=== PATIENT | female | born 1955 | race Caucasian/White ===

== ENCOUNTER 2020-10-01 11:53 | Outpatient (REF) | payer MEDICARE, MEDICAID, SELFPAY ==
--- NOTE | 2020-10-01 | MM_ITS ---
EXAMINATION: MM SCREENING DIGITAL BREAST TOMOSYNTHESIS, BILATERAL CLINICAL INFORMATION: Screening. Asymptomatic. The lifetime risk of breast cancer based on the Tyrer-Cuzick Model is 4.8%. COMPARISON: Mammography: December 11, 2018 and studies dating back to March 19, 2014 TECHNIQUE: Digital breast tomosynthesis is performed in both the craniocaudal and mediolateral oblique views along with computer-aided detection (CAD). Synthesized 2D images are generated from the tomosynthesis. FINDINGS: The breasts are almost entirely fatty (ACR BI-RADS breast composition Category a). There are no significant masses, abnormal calcifications, or other abnormalities. MM/MM tomosynthesis screening BI IMPRESSION: There are no significant changes from prior study. ASSESSMENT: BI-RADS 1: Negative RECOMMENDATION: Routine annual mammography screening. This patient's information was entered into a reminder system with a target due date for their next mammogram.
== END 2020-10-01 11:54 | disposition home or self-care (01) ==
LOC: HO.MAMMO 11:53
PROVIDERS: Visit Provider Internal Medicine
DX: Z12.31 Encounter for screening mammogram for malignant neoplasm of breast (principal)
CPT/HCPCS: 77063; 77067

== ENCOUNTER → 2020-11-01 12:32 | Outpatient (BNVA) | payer MEDICARE, MEDICAID, SELFPAY | PROVIDERS: PCP Internal Medicine; Referring Provider Internal Medicine; Visit Provider Internal Medicine Cardiovascular Disease | DX: R07.9 Chest pain, unspecified (principal); E78.5 Hyperlipidemia, unspecified | CPT/HCPCS: 93005; 99212 ==

== ENCOUNTER → 2020-11-09 10:42 | Outpatient (REF) | payer MEDICARE, MEDICAID, SELFPAY ==
--- NOTE | 2020-11-09 10:44 | CA_ITS ---
Acquisition Time: 2020-11-09 11:15:12 Total Exercise Time: 00:07:05 Test Indications: cp Medications: see chart Protocol: GUDELIA Max HR: 173 BPM 110% of Pred: 157 BPM Max BP: 146/080 mmHG Max Work Load: 8.6 METS Exercise stress ECHO using Gudelia protocol, total of 7 min 5 sec. METS 8.6 with MAPHR up to 106%. Pt tolerated well, denies any anginal sx, mild SOB in peak exercise, that resolved in recovery. EKG with no arrhythmias, Mild upsloping ST depressions seen in leads V3-V6. ECHO images taken at rest and immediately after peak exercise. Defenity contrast used. Normotensive response to exercise. Test reviewed with Dr. Jimenez Referred By: Drew Natarajan Overread By: Louise Victoria
== END ==
LOC: HO.CARD 10:42
PROVIDERS: Visit Provider Internal Medicine Cardiovascular Disease
DX: R07.9 Chest pain, unspecified (principal)
CPT/HCPCS: 93350; Q9957

== ENCOUNTER → 2020-11-29 13:18 | Outpatient (BNVA) | payer MEDICARE, MEDICAID, SELFPAY | PROVIDERS: PCP Internal Medicine; Visit Provider Internal Medicine Cardiovascular Disease | DX: E78.5 Hyperlipidemia, unspecified (principal); R07.9 Chest pain, unspecified | CPT/HCPCS: Q3014 ==

== ENCOUNTER → 2020-12-06 07:54 | Outpatient (REF) | payer MEDICARE, MEDICAID, SELFPAY ==
--- NOTE | 2020-12-06 08:00 | CA_ITS ---
Acquisition Time: 2020-12-06 09:01:14 Total Exercise Time: 00:07:20 Test Indications: Abnormal Treadmill Test Medications: ASA ROSUVASTATIN TOPAMAX ZETIA DICLOFENAC Protocol: GUDELIA Max HR: 142 BPM 90% of Pred: 157 BPM Max BP: 144/066 mmHG Max Work Load: 9.0 METS Exercise stress nuclear using Gudelia protocol, total of 7 mi n 20 sec. METS 9.0 and TAPHR up to 90- %. Pt tolerated well. Denies any anginal sx. EKG with no arrhythmias. Mild, scooped ST depressions seen inferiorly and laterally. Nuclear images to follow. Normotensive response to exercise. Test reviewed with Dr. Natarajan. Referred By: Drew Natarajan Overread By: Louise Victoria
--- NOTE | 2020-12-06 08:07 | NM_ITS ---
EXERCISE MYOCARDIAL PERFUSION STUDY INDICATION: Chest pain, assess for coronary disease and ischemia TECHNIQUE: The patient was brought in for an exercise perfusion study on 12/06/2020. Patient performed exercise as per Brian protocol and was injected 25 mCi of sestamibi once target heart rate was achieved. Images were obtained using the SPECT gamma camera interlaced with the gating device. Images were obtained in supine position. Resting perfusion study was performed on 12/07/2020. Patient was administered 25 mCi of sestamibi intravenously at rest. Images were then obtained in supine position. Total DLP 79mGy-cm. Images were processed with the software and compared side to side in short axis, horizontal long axis and vertical long axis views. FINDINGS: Raw images were reviewed. The stress perfusion study showed diminished tracer uptake along the distal anterolateral wall. With CT attenuation correction, there is improvement which is indicative of soft tissue attenuation artifact. The gated study shows normal LV systolic function with calculated LVEF of 72%. LV cavity is normal in size. The gated study shows normal wall thickening and contraction of segments. Resting study shows diminished tracer uptake along the distal part of anterolateral wall that improves with CT attenuation correction. Gating at rest reveals normal wall motion with ejection fraction at 70%. The findings are consistent with distal anterolateral perfusion defect with reversible and fixed components but improving with CT attenuation correction. NM/DC cardiolite stress test IMPRESSION: 1. Myocardial perfusion imaging study shows distal anterolateral perfusion defect which has some reversible and fixed components. Improvement with CT attenuation correction this is suggestive of soft tissue attenuation. However EKG component is also abnormal and hence clinically correlate for ischemia. 2. Gated LVEF is 72% with stress; 70% during rest.. 3. Transient ischemic dilatation not present. EKG component of the test reported separately.
== END ==
LOC: HO.CARD 07:54
PROVIDERS: Visit Provider Internal Medicine Cardiovascular Disease
DX: R07.9 Chest pain, unspecified (principal)
CPT/HCPCS: 78452; 93017; A9500

== ENCOUNTER → 2020-12-16 09:54 | Outpatient (BNVA) | payer MEDICARE, MEDICAID, SELFPAY | PROVIDERS: PCP Internal Medicine; Visit Provider Internal Medicine Cardiovascular Disease | DX: R07.9 Chest pain, unspecified (principal); I77.9 Disorder of arteries and arterioles, unspecified; E78.5 Hyperlipidemia, unspecified | CPT/HCPCS: 99212 ==

== ENCOUNTER → 2021-03-10 10:21 | Outpatient (BNVA) | payer MEDICARE, MEDICAID, SELFPAY | PROVIDERS: PCP Internal Medicine; Visit Provider Nurse Practitioner Family | DX: R07.9 Chest pain, unspecified (principal); I77.9 Disorder of arteries and arterioles, unspecified; E78.5 Hyperlipidemia, unspecified; Z79.899 Other long term (current) drug therapy | CPT/HCPCS: 99212 ==

== ENCOUNTER → 2021-07-07 13:20 | Outpatient (BNVA) | payer MEDICARE, MEDICAID, SELFPAY | PROVIDERS: PCP Internal Medicine; Visit Provider Internal Medicine Cardiovascular Disease | DX: R07.89 Other chest pain (principal) | CPT/HCPCS: 93005; 99212 ==

== ENCOUNTER 2021-07-25 09:53 | Outpatient (REF) | payer MEDICARE, MEDICAID, SELFPAY ==
[2021-07-25 10:59] LABS: Hematocrit 42.7 % (37-47); Hemoglobin 13.9 g/dl (12.0-16.0); Mean Corpuscular HGB Conc 32.6 g/dl (31.0-35.0); Mean Corpuscular Hemoglobin 30.3 pg (27.0-33.0); Mean Platelet Volume 9.6 fL (9.4-12.3); Platelet Count 384 X10*3/uL (160-400); Red Blood Count 4.59 X10*6/uL (4.20-5.50); Red Cell Distribution Width 13.9 % (11.0-16.0); White Blood Count 6.5 X10*3/uL (4.8-10.8)
[2021-07-25 11:11] LABS: Prothrombin Time 11.7 SEC (9.9-13.0)
[2021-07-25 11:28] LABS: Anion Gap 13 (12-20); Blood Urea Nitrogen 6 mg/dL (9-16); Calcium 9.7 mg/dL (8.4-10.2); Carbon Dioxide 29 mmol/L (22-29); Chloride 105 mmol/L (96-108); Estimated Glomerular Filt Rate > 60; Glucose Random 81 mg/dL (60-115); Potassium 4.6 mmol/L (3.3-5.1); Sodium 142 mmol/L (135-145)
== END 2021-07-25 09:54 | disposition home or self-care (01) ==
LOC: HO.LAB 09:53
PROVIDERS: PCP Internal Medicine; Visit Provider Internal Medicine Cardiovascular Disease
DX: R07.9 Chest pain, unspecified (principal)
CPT/HCPCS: 36415; 80048; 85027; 85610

== ENCOUNTER 2021-08-04 10:08 | Outpatient (REF) | payer MEDICARE, MEDICAID, SELFPAY ==
[2021-08-04 10:50] LABS: COVID-19 Test Negative (Negative)
== END 2021-08-04 10:09 | disposition home or self-care (01) ==
LOC: HO.LAB 10:08
PROVIDERS: PCP Internal Medicine; Visit Provider Internal Medicine
DX: Z20.822 Contact with and (suspected) exposure to COVID-19 (principal)
CPT/HCPCS: 36415; 87635; C9803

== ENCOUNTER → 2021-08-23 12:39 | Outpatient (BNVA) | payer MEDICARE, MEDICAID, SELFPAY | PROVIDERS: PCP Internal Medicine; Referring Provider Internal Medicine; Visit Provider Internal Medicine Cardiovascular Disease | DX: I25.10 Atherosclerotic heart disease of native coronary artery without angina pectoris (principal) | CPT/HCPCS: 99212 ==

== ENCOUNTER 2021-10-05 11:48 | Outpatient (REF) | payer MEDICARE, MEDICAID, SELFPAY ==
--- NOTE | ~2021-10-05 | MM_ITS ---
EXAMINATION: MM SCREENING DIGITAL BREAST TOMOSYNTHESIS, BILATERAL CLINICAL INFORMATION: Screening. Asymptomatic. The lifetime risk of breast cancer based on the Tyrer-Cuzick Model is 5%. COMPARISON: Mammography: 10/01/2020, 12/11/2018, 04/04/2017 TECHNIQUE: Digital breast tomosynthesis is performed in both the craniocaudal and mediolateral oblique views along with computer-aided detection (CAD). Synthesized 2D images are generated from the tomosynthesis. FINDINGS: There are scattered areas of fibroglandular density (ACR BI-RADS breast composition Category b). There are no significant masses, abnormal calcifications, or other abnormalities. Background stromal and fibroglandular densities are stable. No significant changes. MM/MM tomosynthesis screening BI IMPRESSION: No mammographic evidence of malignancy. ASSESSMENT: BI-RADS 1: Negative RECOMMENDATION: Routine annual mammography screening. This patient's information was entered into a reminder system with a target due date for their next mammogram.
== END 2021-10-05 11:49 | disposition home or self-care (01) ==
LOC: HO.MAMMO 11:48
PROVIDERS: Visit Provider Internal Medicine
DX: Z12.31 Encounter for screening mammogram for malignant neoplasm of breast (principal)
CPT/HCPCS: 77063; 77067

== ENCOUNTER → 2022-08-28 12:49 | Outpatient (BNVA) | payer MEDICARE, MEDICAID, SELFPAY | PROVIDERS: PCP Internal Medicine; Referring Provider Internal Medicine; Visit Provider Internal Medicine Cardiovascular Disease | DX: I25.10 Atherosclerotic heart disease of native coronary artery without angina pectoris (principal) | CPT/HCPCS: 93005; 99212 ==

== ENCOUNTER 2023-12-01 09:33 | Outpatient (REF) | payer MEDICARE, MEDICAID, SELFPAY | END 2023-12-01 09:34 | disposition home or self-care (01) | LOC: HO.MAMMO 09:33 | PROVIDERS: PCP Internal Medicine; Visit Provider Internal Medicine | DX: Z12.31 Encounter for screening mammogram for malignant neoplasm of breast (principal) | CPT/HCPCS: 77063; 77067 ==

== ENCOUNTER → 2023-12-01 09:45 | Outpatient (BNV) | payer OTHER, MEDICAID, SELFPAY | PROVIDERS: PCP Internal Medicine; Visit Provider Radiology Diagnostic Radiology | DX: Z12.31 Encounter for screening mammogram for malignant neoplasm of breast (principal) | CPT/HCPCS: 77063; 77067 ==

== ENCOUNTER 2024-01-30 10:43 | Outpatient (AMB) | payer MEDICARE, MEDICAID, SELFPAY ==
--- NOTE | 2024-01-30 10:47 | A.OFFVIS_ITS ---
Intake Vital Signs 01/30/24 10:48 Height 5 ft 2 in Weight 143 lb 4.807 oz BMI 26.2 BP 120/76 Blood Pressure Location Lt brachial Position Sitting Pulse 69 Intake Visit Reasons: 1 YR F/UP Intake Note: 1 year follow up with EKG Allergies varenicline Allergy (Unknown, Verified 03/10/21 10:44) rash Medication List - Last Reconciled 01/30/24 by Drew Natarajan MD aspirin (Adult Low Dose Aspirin) 81 mg PO DAILY blood pressure monitor (Blood Pressure Kit) As directed cyclobenzaprine 10 mg PO BID PRN diclofenac sodium 75 mg PO BID duloxetine 60 mg PO DAILY duloxetine (Cymbalta) 30 mg PO BID ezetimibe (Zetia) 10 mg PO DAILY metoprolol succinate ER 25 mg PO DAILY naproxen 5 mg PO BID PRN nitroglycerin 0.3 mg sublingual Q5M omeprazole 20 mg PO DAILY rosuvastatin 40 mg PO DAILY topiramate (Topamax) 50 mg PO BID HPI HPI Comments History of Present Illness Details Dominic comes for follow-up after a longer than a year. She says that she never got the appointment. She denies any new symptoms. She says intermittently she would get sudden not thing in her chest which should happen including at rest and last for few seconds. Symptoms would quickly resolved with associated with shortness of breath. She also gets exertional shortness of breath but unfortunately she continues to smoke. As you aware she has diffuse nonobstructive coronary artery disease. She was recently started on statins, high-intensity rosuvastatin as well as ezetimibe. Repeat lipids are pending. A blood pressure is generally well control and she takes all her medications regularly. COUNT INCLUDES THE [facility] Medical History CAD (coronary artery disease) CVA (cerebral vascular accident) Bilateral carotid artery disease Hyperlipidemia Surgical History Hx of arthroscopic knee surgery Family History Father CVD (cardiovascular disease) Mother Esophagus cancer Review of Systems Const Denies weakness ENT Denies dizziness Card Denies chest pain, Denies chest pain with activity, Denies syncope, Denies rapid heart rate, Denies pedal edema, Denies edema, Denies leg edema, Denies lightheadedness, Denies palpitations, Denies dyspnea, Denies dyspnea on exertion and Denies orthopnea Resp Denies cough, Denies dyspnea and Denies dyspnea on exertion GI Denies hematochezia and Denies change in stool character Musc Denies abnormal gait, Denies muscle cramps, Denies muscle weakness, Denies numbness, Denies radiating pain into limb and Denies tingling Neuro Denies abnormal gait, Denies dizziness, Denies syncope, Denies numbness, Denies tingling and Denies weakness Endo Denies palpitations Physical Exam Vital Signs: Last Vital Signs Pulse 69 01/30/24 10:48 BP 120/76 01/30/24 10:48 BMI result Body Mass Index 26.2 Const General: cooperative, comfortable, alert and awake Nutritional Appearance: average body habitus Orientation/consciousness: patient oriented x3 Limitations: no limitations Neck Neck: Yes trachea midline, Yes supple and Yes no JVD Chest Chest palpation & inspection: normal inspection of the chest Resp Effort & Inspection: normal respiratory effort Auscultation: clear to auscultation bilaterally Cardio Jugular venous distension: no JVD Palpation: normal PMI Rate: regular rate Rhythm: regular rhythm Heart sounds: S1 normal heart sound present and S2 normal heart sound present Skin General skin exam: no rashes or lesions noted Neuro General: patient oriented x3 and no focal motor deficits Extrem General: Yes no clubbing, cyanosis or edema Psych Appearance: grossly normal Office Procedures EKG Details: EKG shows normal sinus rhythm with normal EKG [id number], Complete Assessment & Plan Assessment & Plan (1) CAD (coronary artery disease): Comment: Nonobstructive by cardiac catheterization, 08/09/2021 Code(s): I25.10 - Atherosclerotic heart disease of [place] coronary artery without angina pectoris Plan: Diffuse CAD, nonobstructive by cardiac catheterization. Intermittent episode of chest discomfort which appear to be not cardiac in nature. She does have exertional shortness of breath which could be related to COPD/LV systolic dysfunction. She also has diffuse bilateral carotid disease. Will suggest carotid duplex to further assess for progressive carotid disease. Continue aggressive risk factor modification with starts with complete smoking cessation. This was discussed with her. She is currently wanting to defer smoking cessation. She was recently started on high-intensity statin therapy and ezetimibe which she is tolerating well. Advise follow-up lipid panel as prescr ibed. Goal LDL closer to 60 mg/dL. Continue low-dose aspirin therapy. Blood pressure is currently well optimized. Follow up in the clinic in 1 year's time, sooner p.r.n.. Thank you for allowing me to partake in the care Coding Level of Care Code Est Pt Level 4 (80025) Diagnoses CAD (coronary artery disease) I25.10 CPT Codes EKG - CPT: 79237-[id number], Complete ([id number])
[2024-01-30 10:48] VITALS: BP 120/76; PULSE 69; BMI 26.2
== END 2024-01-30 11:25 | disposition home or self-care (01) ==
PROVIDERS: PCP Internal Medicine; Visit Provider Internal Medicine Cardiovascular Disease
DX: I25.10 Atherosclerotic heart disease of native coronary artery without angina pectoris (principal)
CPT/HCPCS: 93010; 99214

== ENCOUNTER → 2024-01-30 10:43 | Outpatient (BNVA) | payer MEDICARE, MEDICAID, SELFPAY | PROVIDERS: PCP Internal Medicine; Visit Provider Internal Medicine Cardiovascular Disease | DX: I25.10 Atherosclerotic heart disease of native coronary artery without angina pectoris (principal) | CPT/HCPCS: 93005; 99212 ==

== ENCOUNTER 2024-02-06 14:34 | Outpatient (REF) | payer MEDICARE, MEDICAID, SELFPAY ==
--- NOTE | ~2024-02-06 | US_ITS ---
EXAMINATION: US EXTRACRANIAL CAROTID DUPLEX, BILATERAL CLINICAL INFORMATION: CVA COMPARISON: Carotid ultrasound 2019 and 2016 TECHNIQUE: Real-time ultrasound and Doppler techniques (integrating B-mode 2-D vascular images, Doppler spectral analysis and color-flow Doppler imaging) were utilized to interrogate the extracranial carotid arteries, the vertebral arteries and proximal subclavian arteries bilaterally. The degree of stenosis is determined by criteria similar to NASCET. FINDINGS: Right Side: 1. There is mild atherosclerotic plaque seen in the bifurcation/proximal ICA region. 2. The common carotid artery PSV proximally is 103 cm/s and distally 57 cm/s. 3. The proximal internal carotid artery velocities are 117 cm/s systolic and 41 cm/s diastolic. 4. The proximal external carotid artery PSV is 142 cm/s. 5. The vertebral artery shows antegrade flow. 6. The subclavian artery waveforms are normal. Left Side: 1. There is mild atherosclerotic plaque seen in the bifurcation/proximal ICA region. 2. The common carotid artery PSV proximally is 118 cm/s and distally 77 cm/s. 3. The proximal internal carotid artery velocities are 103 cm/s systolic and 32 cm/s diastolic. 4. The proximal external carotid artery PSV is 92 cm/s. 5. The vertebral artery shows antegrade flow. 6. The subclavian artery waveforms are abnormal with peak systolic velocity of 2 24 cm/s. US/US carotid duplex BI IMPRESSION: 1. RIGHT: Minimal, non-hemodynamically significant stenosis of the proximal right internal carotid artery corresponding to a 0-49% stenosis by velocity criteria. 2. LEFT: Minimal, non-hemodynamically significant stenosis of the proximal left internal carotid artery corresponding to a 0-49% stenosis by velocity criteria. 3. Redemonstration of elevated peak systolic velocities within the left distal ICA, which may be related to tortuosity or atherosclerotic disease. As recommended on prior ultrasound in 2016, recommend further evaluation with CTA or MRA. 4. Elevated peak systolic velocities within the left subclavian artery, consistent with more hemodynamically significant stenosis.
== END 2024-02-06 14:35 | disposition home or self-care (01) ==
LOC: HO.US 14:34
PROVIDERS: PCP Internal Medicine; Visit Provider Internal Medicine Cardiovascular Disease
DX: I77.9 Disorder of arteries and arterioles, unspecified (principal); I65.23 Occlusion and stenosis of bilateral carotid arteries
CPT/HCPCS: 93880

== ENCOUNTER → 2024-02-19 13:42 | Outpatient (REF) | payer MEDICARE, MEDICAID, SELFPAY ==
--- NOTE | 2024-02-19 13:44 | CA_ITS ---
Transthoracic Echocardiogram Patient (Last, First, Middle): Sita Swanson, Gender: Female Date of : 1955 Age: 68 Procedure Date: 02/19/2024 Procedure Type: Transthoracic Echocardiogram Location: OP Height: 157.48 cm Weight: 64.41 kg BSA: 1.65 m2 Heart Rate: bpm BP: 132 / 76 mmHg Spiral Winding Machine Helper: MARIN Referring MD: Drew Natarajan MD Symptoms: R06.02 - Shortness of breath Study Quality: Adequate ECG Rhythm: Sinus Conclusions: - The left ventricular systolic function is normal. The calculated ejection fraction is 64% by biplane method. - No obvious valvular pathology seen on this study. Findings Left Ventricle Normal left ventricular cavity size. There is normal left ventricular wall thickness. The left ventricular systolic function is normal. The calculated ejection fraction is 64% by biplane method. There is no evidence of regional wall motion abnormalities. Diastolic function is normal for age. LV peak GLS -16.2%, suspect some underestimation. Right Ventricle Normal right ventricular cavity size and systolic function. Atria Both atria are normal in size. Aortic Valve There is a normal trileaflet aortic valve. There is no aortic valve stenosis. There is no aortic valve regurgitation. Mitral Valve The mitral valve appears normal. There is trace mitral valve regurgitation. There is no mitral valve stenosis. Pulmonic Valve The pulmonic valve is likely normal. Tricuspid Valve There is mild tricuspid valve regurgitation. There is no evidence of pulmonary hypertension. Great Vessels The asc aorta is normal in size. Venous The inferior vena cava is mildly dilated and collapses greater than 50% with inspiration. Pericardium/Pleural There is no evidence of pericardial effusion. Prior Study Comparison No significant change compared to prior study dated: 11/09/2020. Recommendations, Care & Conclusions No obvious valvular pathology seen on this study. Measurements 2D Linear Measurements IVSd: 1.01 0.6-0.9/0.6-1.0 cm LVIDd: 4.92 3.9-5.3/4.2-5.9 cm LVIDd Index: 2.98 2.4-3.2/2.2-3.1 cm/m2 LVIDs: 3.18 2.0-3.6 cm LVPWd: 0.79 0.7-1.1 cm LA Diam: 3.80 2.7-3.8/3.0-4.0 cm LAIDs Index: 2.30 1.5-2.3 cm/m2 LV Mass: 191.32 67-162/88-224 g LV Mass Index: 115.95 43-95/49-115 g/m2 LVOT Diam: 2.10 3.0+(-)1.3 cm 2D Systolic Function EF 4C: 63.40 >55% EF 2C: 65.60 >55% EF BiP: 63.50 >55% Mitral Valve MV Pk E: 0.68 MV PK A: 0.49 MV Decel Time: 250.00 E/A: 1.40 E'Lateral: 10.90 E'Medial: 8.81 E/E' Med: 7.70 E/E' Lat: 6.20 PHT: 73.00 MVA PHT: 3.01 Decel [place]: 2.70 Aortic Valve AoV Pk Kosta: 1.21 AoV Mn Kosta: 0.77 AoV VTI: 0.28 AoV Pk Grad: 6.00 Aov Mn Grad: 3.00 ROBEL Cont.VTI: 2.68 LVOT LVOT Pk [place]osta: 0.93 LVOT Mn [place]osta: 0.61 LVOT VTI: 0.21 LVOT Pk Grad: 3.00 LVOT Mn Grad: 2.00 LVOT Diam: 2.10 LVOT Area: 3.46 Diastolic Function MV Pk E: 0.68 MV Pk A: 0.49 E/A: 1.40 E'Medial: 8.81 E/E' Med: 7.70 E' Laterial: 10.90 E/E' Lat: 6.20 Right Ventricle TAPSE (mm): 28.50 TVS' Kosta: 14.30 Tricuspid Valve TR Pk [place]: 2.18 TR Pk Grad: 19.00 RA Press: 8.00 RVSP: 27.00 Great Vessels Aorta Sinus of Valsalva: 2.98 2.0-3.[address] [place]: 2.37 1.7-3.4 cm Ao Asc: 3.30 2.1-3.4 cm Updated in Other Vendor System with Status of Final Jerry Jimenez MD electronically signed on 02/20/2024 11:44:30 AM with status of Final
== END ==
LOC: HO.CARD 13:42
PROVIDERS: PCP Internal Medicine; Visit Provider Internal Medicine Cardiovascular Disease
DX: R06.02 Shortness of breath (principal)
CPT/HCPCS: 93306; 93356

== ENCOUNTER → 2024-02-19 13:44 | Outpatient (BNV) | payer MEDICARE, MEDICAID, SELFPAY | PROVIDERS: PCP Internal Medicine; Visit Provider Internal Medicine | DX: R06.02 Shortness of breath (principal) | CPT/HCPCS: 93306; 93356 ==

== ENCOUNTER 2024-05-07 09:03 | Outpatient (REF) | payer MEDICARE, MEDICAID, SELFPAY ==
[2024-05-07 11:56] LABS: Estimated Average Glucose 108 mg/dL; Hemoglobin A1c % 5.4 % (<6.0)
[2024-05-07 12:12] LABS: Alanine Aminotransferase 16 U/L (0-31); Albumin Level 3.9 g/dL (3.5-5.0); Alkaline Phosphatase 89 U/L (39-117); Anion Gap 10 (12-20); Aspartate Amino Transferase 17 U/L (5-31); Bilirubin Direct 0.2 mg/dL (0.0-0.5); Bilirubin Total 0.3 mg/dL (0.0-1.0); Blood Urea Nitrogen 13 mg/dL (9-16); Calcium 9.5 mg/dL (8.4-10.2); Carbon Dioxide 30 mmol/L (22-29); Chloride 105 mmol/L (96-108); Cholesterol 188 mg/dL (<200); Estimated Glomerular Filt Rate > 60; Glucose Random 97 mg/dL (60-115); HDL Cholesterol 45 mg/dL (>40); LDL Cholesterol Calculated 124 mg/dL (<100); Sodium 141 mmol/L (135-145); Total Protein 7.8 g/dL (6.5-8.0); Triglycerides 99 mg/dL (<150)
== END 2024-05-07 09:04 | disposition home or self-care (01) ==
LOC: HO.HHCL 09:03
PROVIDERS: Visit Provider Internal Medicine
DX: I25.10 Atherosclerotic heart disease of native coronary artery without angina pectoris (principal); I65.23 Occlusion and stenosis of bilateral carotid arteries; Z79.899 Other long term (current) drug therapy
CPT/HCPCS: 36415; 80048; 80061; 80076; 83036

== ENCOUNTER 2024-12-06 09:02 | Outpatient (REF) | payer MEDICARE, MEDICAID, SELFPAY | END 2024-12-06 09:03 | disposition home or self-care (01) | LOC: HO.MAMMO 09:02 | PROVIDERS: PCP Internal Medicine; Visit Provider Internal Medicine | DX: Z12.31 Encounter for screening mammogram for malignant neoplasm of breast (principal) | CPT/HCPCS: 77063; 77067 ==

== ENCOUNTER → 2024-12-06 09:45 | Outpatient (BNV) | payer MEDICARE, MEDICAID, SELFPAY | PROVIDERS: PCP Internal Medicine; Visit Provider Internal Medicine | DX: Z12.31 Encounter for screening mammogram for malignant neoplasm of breast (principal) | CPT/HCPCS: 77063; 77067 ==

== ENCOUNTER 2025-01-29 13:07 | Outpatient (AMB) | payer MEDICAID, SELFPAY ==
--- NOTE | 2025-01-29 13:23 | A.OFFVIS_ITS ---
Vital Signs 01/29/25 13:24 Height 5 ft 2 in Weight 143 lb 4.807 oz BMI 26.2 BP 120/80 Blood Pressure Location Lt brachial Position Sitting Pulse 86 Intake Visit Reasons: 1 yr f/up Intake Note: 1 year follow-up c/o some chest pain and sob patient hasn't taken her metoprolol 4-5 months Branch Operations Coordinator Required: No Allergies varenicline Allergy (Unknown, Verified 03/10/21 10:44) rash Medication List - Last Reconciled 01/29/25 by Drew Natarajan MD aspirin (Adult Low Dose Aspirin) 81 mg PO DAILY blood pressure monitor (Blood Pressure Kit) As directed cyclobenzaprine 10 mg PO BID PRN diclofenac sodium 75 mg PO BID duloxetine 60 mg PO DAILY duloxetine (Cymbalta) 30 mg PO BID ezetimibe (Zetia) 10 mg PO DAILY naproxen 5 mg PO BID PRN nitroglycerin 0.3 mg sublingual Q5M omeprazole 20 mg PO DAILY rosuvastatin 40 mg PO DAILY topiramate (Topamax) 50 mg PO BID HPI Comments Details: Sita comes for follow-up. Patient says she never about refill for metoprolol, never called our office. She has been noticing some chest discomfort since she has been off metoprolol. Overall also complains of occasional palpitations. Unfortunately she continues to smoke. She takes all her medications. Has not had any repeat lipid profile. Denies any heart failure symptoms. No prolonged palpitation irregular heartbeat. [facility] Medical History CAD (coronary artery disease) CVA (cerebral vascular accident) Bilateral carotid artery disease Hyperlipidemia Surgical History Hx of arthroscopic knee surgery Family History Father CVD (cardiovascular disease) Mother Esophagus cancer Review of Systems Const Denies chills, Denies fatigue, Denies fever(s), Denies frequent falls, Denies weakness, Denies weight gain and Denies weight loss ENT Denies dizziness Card Denies chest pain, Denies leg edema, Denies lightheadedness, Denies palpitations, Denies dyspnea, Denies dyspnea on exertion, Denies orthopnea and Denies other (loss of consciousness) Resp Denies cough, Denies dyspnea and Denies dyspnea on exertion GI Denies hematochezia and Denies change in stool character Musc Denies abnormal gait, Denies muscle weakness, Denies numbness, Denies radiating pain into limb and Denies tingling Neuro Denies abnormal gait, Denies dizziness, Denies frequent falls, Denies numbness, Denies tingling and Denies weakness Endo Denies fatigue and Denies palpitations Physical Exam Vital Signs: Last Vital Signs Pulse 86 01/29/25 13:24 BP 120/80 01/29/25 13:24 BMI result Body Mass Index 26.2 Const General: cooperative, comfortable, alert and awake Nutritional Appearance: average body habitus Orientation/consciousness: patient oriented x3 Limitations: no limitations Neck Neck: Yes trachea midline, Yes supple and Yes no JVD Chest Chest palpation & inspection: normal inspection of the chest Resp Effort & Inspection: normal respiratory effort Auscultation: clear to auscultation bilaterally Cardio Jugular venous distension: no JVD Palpation: normal PMI Rate: regular rate Rhythm: regular rhythm Heart sounds: S1 normal heart sound present and S2 normal heart sound present Skin General skin exam: no rashes or lesions noted Neuro General: patient oriented x3 and no focal motor deficits Extrem General: Yes no clubbing, cyanosis or edema Psych Appearance: grossly normal Office Procedures EKG Details: EKG shows normal sinus rhythm nonspecific ST changes [id number], Complete Assessment & Plan Assessment & Plan (1) CAD (coronary artery disease): Comment: Nonobstructive by cardiac catheterization, 08/09/2021 Code(s): I25.10 - Atherosclerotic heart disease of [place] coronary artery without angina pectoris Category: Medical Plan: Diffuse vascular disease although nonobstructive. Patient was multiple risk factors for the same. Current chest pain syndrome probably is related to ischemia with nonobstructive coronary artery disease. Advised to restart metoprolol therapy which has done well for her. Advised to monitor blood pressure at home maintain a log. Complete smoking cessation was advised. Continue high-intensity statin therapy with target goal LDL less than 70 mg/dL. Advised lipid panel in near future. Continue low-dose aspirin therapy for life. Carotid duplex last year showed nonobstructive disease, needs to be done every couple years. Advised to maintain activity level as tolerated. Will follow up in the clinic in 1 year's time, sooner p.r.n.. Thank you for allowing me to partake in her care Medications: New metoprolol succinate ER (Toprol XL) 25 mg PO DAILY 90 tabs 3RF Refilled nitroglycerin 0.3 mg sublingual Q5M 300 tabs 1RF for angina Coding Level of Care Code Est Pt Level 4 (89907) Complex EM visit Add On G2211 Diagnoses CAD (coronary artery disease) I25.10 CPT Codes EKG - CPT: 33150-[id number], Complete ([id number])
[2025-01-29 13:24] VITALS: BP 120/80; PULSE 86; BMI 26.2
--- OUTSIDE RECORDS SUMMARY | 2025-01-29 15:53 | XMS_ITS | Encounter Summary ---
Author Organization [employer] Address [address] [facility] 7t [place] [address] Care Team Providers Care Reclamation Worker Name Role Phone Helga Parker MD Primary Care Provide r Reason for Visit * Reason Comments Pre-visit Planning (Unable to reach for PVP screening, LVM) Encounter Details Date Type Department Care Team ([facility] st Contact Info) Description 01/28/2025 Patient Outreach [facility] [address] [place] [address] Helga Parker MD [address] [place] [address] Pre-visit Planning ((Unable to reach for PVP screening, LVM)) Social History Tobacco Use Types Packs/Day Years Used Date Smoking Tobacco: Every Day Cigarettes Passive Smoke Exposure: Current Smokeless Tobacco: Never Alcohol Use Standard Drinks/Week Comments Never 0 (1 standard drink = 0.6 oz pur e alcohol) Depression Answer Date Recorded Patient Health Questionnaire-9 Score 0 05/07/2024 Patient Health Questionnaire-9 Score 0 05/07/2024 Last PHQ-9: Questionnaire Data Not on file 0 05/07/2024 Housing Stability Answer Date Recorded What is your housing situation today? I have ronel kam 09/12/[address] you li ve. Do you have problems with any of the following? None of the above 09/12/2023 Food Insecurity Answer Date Recorded Within the past 12 months, y ou worried that your food would run out before you got money to buy more: Never True 09/12/2023 Within the past 12 months,th e food you bought just didn't last and you didn't have enough money to get more: Never True Transportation Answer Date Recorded In the past 12 months, has l ack of transportation kept you from medical appts, meetings, work or from getting things needed for daily living? No 09/12/2023 Utilities Answer Date Recorded In the past 12 months, has t he electric, gas, oil or water company threatened to shut off services in your home? No 09/12/2023 Depression Answer Date Recorded Patient Health Questionnaire-2 Score 0 05/07/2024 Comments Unknown Sex and Gender Information Value Date Recorded Sex Assigned at Female 09/25/2022 10:16 AM EDT Legal Sex Female 10:16 AM EDT Gender Identity Female 09/25/2022 10:16 AM EDT Sexual Orientation Straight 09/25/2022 10 :16 AM EDT documented as of this encounter Progress Notes * Aissatou Chaparro - 01/28/2025 9:45 AM EST CC Aissatou. Placed outbound call to patient to complete pre-visit planning. No answer at this time. Patient name and were not confirmed. CC left voicemail requesting return call. Direct contact information provided. documented in this encounter Plan of Treatment Upcoming Encounters Date Type Department Care Team (Late st Contact Info) Description 02/04/2025 10:30 AM EDT Office Visit [facility] [address] [place] [address] Helga Parker MD [address] [place] [address] documented as of this encounter Visit Diagnoses Not on filedocumented in this encounter Additional Health Concerns Assessment Noted Time PHQ-9 Depression Total Score: 0 05/07/20 24 10:15 AM EDT documented as of this encounter Care Teams Reclamation Worker Relationship Specialty Start Date End Date Helga Parker MD [address] [place] [id number] PCP - General Family Medicine 08/07/18 documented as of this encounter
--- OUTSIDE RECORDS SUMMARY | 2025-01-29 15:53 | XMS_ITS | Clinical Summary ---
Author Organization [employer] Address [address] [facility] 7t [place] [address] Care Team Providers Care Antique Furniture Reproducer Name Role Phone Helga Parker MD Primary Care Provide r Allergies Active Allergy Reactions Criticality Noted Date Comments Aspirin 05/07/2024 Varenicline 12/30/2012 Medications loratadine (Claritin) 10 MG tabletIndications :Viral upper respiratory tract infection TAKE 1 TABLET BY MOUTH EVERY DAY IN THE MORNING 90 tablet 023 Active hydrocortisone (Anusol-HC) 2.5 % rectal creamIndications: Other hemorrhoids Insert into the rectum 2 times daily. 28 g 1 024 Active naproxen (Naprosyn) 500 MG tabletIndications :Primary osteoarthritis of right knee TAKE 1 TABLET BY MOUTH TWICE A DAY 60 tablet 024 Active omeprazole (PriLOSEC) [address] capsuleIndication s:Gastroesophagea l reflux disease without esophagitis TAKE 1 CAPSULE BY MOUTH EVERY DAY IN THE MORNING 90 capsule 024 Active cholecalciferol (Vitamin D-3) 50 MCG (1999) capsuleIndication s:Primary osteoarthritis of right knee TAKE 1 CAPSULE BY MOUTH EVERY DAY 90 capsule 1 024 Active triamcinolone (Kenalog) 0.1 % creamIndications: Rash APPLY TOPICALLY IF NEEDED IN THE MORNING AND AT BEDTIME FOR PAIN AND SWELLING 30 g 1 024 Active mirtazapine (Remeron) 15 MG tabletIndications :Anxiety Take 1 tablet (15 mg) by mouth at bedtime. 30 tablet 1 024 Active Emollient (DermaPhor) ointmentIndicatio ns:Dry skin dermatitis Apply 1 Application topically Once per day. 454 g 1 024 Active lidocaine (Lidoderm) 5 % patchIndications: Chronic bilateral low back pain without sciatica Apply 1 patch topically Once per day. Remove & discard patch within 12 hours or as directed by MD. 30 patch 1 024 Active lidocaine (Xylocaine) 5 % ointmentIndicatio ns:Chronic bilateral low back pain without sciatica Apply topically if needed for mild pain. 50 g 1 024 2024 Active mirabegron ER (Myrbetriq) 25 MG 24 hr tabletIndications :Overactive bladder Take 1 tablet (25 mg) by mouth Once per day. 30 tablet 025 2024 Active hydroquinone 4 % creamIndications: Melasma APPLY TO AFFECTED AREA TWICE A DAY *NC* 28.35 g 025 Active atorvastatin (Lipitor) 80 MG tabletIndications :Bilateral carotid artery stenosis TAKE 1 TABLET (80 MG) BY MOUTH IN THE MORNING 90 tablet 3 025 Active atorvastatin (Lipitor) 80 MG tabletIndications :Bilateral carotid artery stenosis Take 1 tablet (80 mg) by mouth Once per day. 30 tablet 11 024 2024 Discontinued Gemtesa 75 MG tabletIndications :Overactive bladder TAKE 1 TABLET (75 MG) BY MOUTH ONCE PER DAY. 30 tablet 1 025 2024 Discontinued hydroquinone 4 % creamIndications: Melasma APPLY TO AFFECTED AREA TWICE A DAY 28.35 g 025 2024 Discontinued Active Problems Problem Noted Date Diagnosed Date Overactive bladder 10/28/2024 Dry skin dermatitis 10/28/2024 Chronic bilateral low back pain without sciatica 10/28/2024 Melasma 05/07/2024 Assessment & Plan (08/15/2024 1:53 PM EDT): I will prescribe hydorquinone 4% cream BID Patient has upcoming appointment with dermatology Colon cancer screening 05/07/2024 Other hemorrhoids 02/06/2024 Anxiety 02/06/2024 Assessment & Plan (08/15/2024 1:54 PM EDT): Stable Assessment & Plan (02/06/2024 4:17 PM EDT): Counseling done I will try today mirtazapine 15mg at bed time Viral upper respiratory tract infection 09/12/20 23 Assessment & Plan (09/12/2023 10:22 AM EDT): Drink plenty of fluids and rest Hyperactivity of bladder 06/21/2023 Mixed stress and urge urinary incontinence 06/21 Assessment & Plan (11/22/2023 10:51 AM EST): Patient will re-schedule her appointment Primary hypertension 05/23/2023 Assessment & Plan (10/29/2024 4:58 PM EST): I advise: - Aerobic exercise to reduce BP. Initial goal of 30 min walk 3-5x/week. Increase as tolerated. - low-sodium diet (goal: <2g/day) and heart healthy diet such as DASH to reduce BP and prevent ASCVD. - Home BP monitoring 1-2 x day with goal of <140/90. - Seek immediate medical attention for chest pain, palpitations, SOB, syncope, or sudden changes in mental status. - Do not change or discontinue current prescriptions without first consulting health care provider Assessment & Plan (08/15/2024 1:51 PM EDT): Maintenance: BMP: up today Lipid Panel: up today ASCVD Risk: high she is on atorvastatin 80mg daily - Aerobic exercise to reduce BP. Initial goal of 30 min walk 3-5x/week. Increase as tolerated. - low-sodium diet (goal: <2g/day) and heart healthy diet such as DASH to reduce BP and prevent ASCVD. - Home BP monitoring 1-2 x day with goal of <140/90. - Seek immediate medical attention for chest pain, palpitations, SOB, syncope, or sudden changes in mental status. - Do not change or discontinue current prescriptions without first consulting health care provider Assessment & Plan (05/07/2024 12:48 PM EDT): - Aerobic exercise to reduce BP. Initial goal of 30 min walk 3-5x/week. Increase as tolerated. - low-sodium diet (goal: <2g/day) and heart healthy diet such as DASH to reduce BP and prevent ASCVD. - Home BP monitoring 1-2 x day with goal of <140/90. - Seek immediate medical attention for chest pain, palpitations, SOB, syncope, or sudden changes in mental status. - Do not change or discontinue current prescriptions without first consulting health care provider Assessment & Plan (11/22/2023 10:51 AM EST): On atorvastatin 80mg daily - Aerobic exercise to reduce BP. Initial goal of 30 min walk 3-5x/week. Increase as tolerated. - low-sodium diet (goal: <2g/day) and heart healthy diet such as DASH to reduce BP and prevent ASCVD. - Home BP monitoring 1-2 x day with goal of <140/90. - Seek immediate medical attention for chest pain, palpitations, SOB, syncope, or sudden changes in mental status. - Do not change or discontinue current prescriptions without first consulting health care provider Assessment & Plan (09/12/2023 10:21 AM EDT): - Aerobic exercise to reduce BP. Initial goal of 30 min walk 3-5x/week. Increase as tolerated. - low-sodium diet (goal: <2g/day) and heart healthy diet such as DASH to reduce BP and prevent ASCVD. - Home BP monitoring 1-2 x day with goal of <140/90. - Seek immediate medical attention for chest pain, palpitations, SOB, syncope, or sudden changes in mental status. - Do not change or discontinue current prescriptions without first consulting health care provider Assessment & Plan (05/23/2023 4:40 PM EDT): - Aerobic exercise to reduce BP. Initial goal of 30 min walk 3-5x/week. Increase as tolerated. - low-sodium diet (goal: <2g/day) and heart healthy diet such as DASH to reduce BP and prevent ASCVD. - Home BP monitoring 1-2 x day with goal of <140/90. - Seek immediate medical attention for chest pain, palpitations, SOB, syncope, or sudden changes in mental status. - Do not change or discontinue current prescriptions without first consulting health care provider Smoker 05/23/2023 Assessment & Plan (09/12/2023 10:22 AM EDT): I will discontinue bupropion Patient will continue trying to quit smoking Assessment & Plan (06/21/2023 11:26 AM EDT): C/w bupropion Rash 05/23/2023 Osteoarthritis of right knee 04/17/2023 Assessment & Plan (06/21/2023 11:26 AM EDT): Continue to follow with orthopedics Mixed anxiety and depressive disorder 04/17/2023 Assessment & Plan (05/07/2024 12:48 PM EDT): Stable c/w mirtazapine 15mg daily Assessment & Plan (05/23/2023 4:41 PM EDT): Counseling done today Migraine without aura, not refractory 04/17/2023 Fatigue 04/17/2023 Coronary atherosclerosis 04/17/2023 Assessment & Plan (02/06/2024 4:16 PM EDT): Continue to follow with cardiology C/w atorvastatin 80mg daily and ASA 81mg daily Cobalamin deficiency 04/17/2023 Vaginal dryness 04/26/2018 Whole body pain 10/03/2017 Non-cardiac chest pain 10/03/2017 Mood disorder 10/03/2017 Hyperlipidemia 10/03/2017 Gastroesophageal reflux disease without esophagi tis 10/03/2017 Assessment & Plan (08/15/2024 1:52 PM EDT): I advise patient to avoid NSAIDs, spicy and acid food, I advise to eat at the same time every day, I advise to elevate the head of the bed and take medications as prescribe Assessment & Plan (05/07/2024 12:48 PM EDT): I advise patient to avoid NSAIDs, spicy and acid food, I advise to eat at the same time every day, I advise to elevate the head of the bed and take medications as prescribe Assessment & Plan (02/06/2024 4:16 PM EDT): I advise patient to avoid NSAIDs, spicy and acid food, I advise to eat at the same time every day, I advise to elevate the head of the bed and take medications as prescribe Assessment & Plan (05/23/2023 4:40 PM EDT): I advise patient to avoid NSAIDs, spicy and acid food, I advise to eat at the same time every day, I advise to elevate the head of the bed and take medications as prescribe Daily headache 10/03/2017 Chloasma 10/03/2017 Cerebrovascular accident 10/03/2017 Cerebral infarction 10/03/2017 Carotid artery stenosis 10/03/2017 Assessment & Plan (02/06/2024 4:16 PM EDT): US to be done today Encounters Date Type Department Care Team Description 01/28/2025 Patient Outreach [facility] [address] [place] [address] Helga Parker MD Pre-visit Planning ((Unable to reach for PVP screening, LVM)) 01/25/2025 Refill [facility] [address] [place] [address] Helga Parker MD Bilateral carotid artery stenosis 12/29/2024 Refill [facility] [address] [facility] [place] [address] [place] [facility] Melasma 12/29/2024 Refill [facility] [address] [place] [address] [place], [facility] Overactive bladder 12/27/2024 Refill [facility] [address] [place] [address] Helga Parker MD Overactive bladder; Melasma 12/06/2024 Orders Only [facility] [address] [place] [address] Helga Parker MD 11/22/2024 Refill [facility] [address] [place] [address] Helga Parker MD Overactive bladder from Last 3 Months Immunizations Name Administration Dates Next Due Influenza injectable quadriv alent IIV4 with preservative 10/03/2017,10/08/2015 Influenza injectable quadrivalent preservative f ree 11/22/2023 Influenza, IIV3, injectable 09/19/2011 Pneumococcal Conjugate PCV 20 11/22/2023 TD (adult), 2 Lf tetanus tox oid, preservative free, adsorbed 11/26/2006 Tdap 07/25/2013 Zoster, live 10/03/2017 Social History Tobacco Use Types Packs/Day Years Used Date Smoking Tobacco: Every Day Cigarettes Passive Smoke Exposure: Current Smokeless Tobacco: Never Tobacco Cessation:Ready to Q uit: Not Asked; Counseling Given: Not Answered Alcohol Use Standard Drinks/Week Comments Never 0 [...] Orientation Straight 09/25/2022 10 :16 AM EDT Last Filed Vital Signs Vital Sign Reading Time Taken Comments Blood Pressure 143/73 10/28/2024 10:41 AM EST Pulse 73 10/28/2024 10:41 AM EST Temperature 35.8 ??C (96.4 ??F) 10/28/2024 10:[address] Respiratory Rate 16 10/28/2024 10:41 AM EST Oxygen Saturation 100% 08/15/2024 11:22 AM EDT Inhaled Oxygen Concentration - - Weight 62.1 kg (137 lb) 10/28/2024 10:41 AM EST Height 157.5 cm (5' 2 ) 10/28/2024 10:41 AM EST Body Mass Index 25.06 10/28/2024 10:41 AM EST Plan of Treatment Upcoming Encounters Date Type Department Care Team (Late st Contact Info) Description 02/04/2025 10:30 AM EDT Office Visit [facility] [address] [place] [address] Helga Parker MD [address] [place] [address] Health Maintenance Due Date Last Done Comments CT Colonography 1957 Colonoscopy 1957 Colorectal Cancer Screening 1955 FIT DNA/Cologuard 1957 FIT 1957 FOBT 1955 Sigmoidoscopy 1955 Hepatitis C Screening 1975 RSV Patients and Patients Aged 60 years or older (1 - Risk 60-74 years 1-dose series) 2017 Zoster Vaccines (2 of 3) 11/28/2017 10/03/2017 DTaP/Tdap/Td Vaccines (2 - Td or Tdap) 07/25/2023 07/25/2013, 11/26/2006 COVID-19 Vaccine ( - season) 2024 10/27/2021, 02/25/2021, 01/28/2021 Influenza Vaccine (#1) 2024 , 10/03/2017, 10/08/2015, Additional history exists SDOH Screening 01/28/2025 01/29/2024 Depression Screening 05/07/2025 05/07/2024, 05/07/20 Alcohol/Substance Use Screening 10/28/2025 10/28/2024 Tobacco Screening 10/28/2025 10/28/2024 Mammogram 12/06/2025 12/06/2024, 04/2024, 10/05/2021, Additional history exists Lipid Panel 05/07/2029 05/07/2024, 04/27, 03/22/2022, Additional history exists Pneumococcal Vaccine: 50+ Years Completed 11/22/2023 HIB Vaccines Aged Out No longer eligi ble based on patient's age to complete this topic HPV Vaccines Aged Out No longer eligi ble based on patient's age to complete this topic Hepatitis A Vaccines Aged Out No long er eligible based on patient's age to complete this topic Hepatitis B Vaccines Aged Out No long er eligible based on patient's age to complete this topic IPV Vaccines Aged Out No longer eligi ble based on patient's age to complete this topic Meningococcal Vaccine Aged Out No la josé miguel eligible based on patient's age to complete this topic RSV under 20 months Aged Out No longe r eligible based on patient's age to complete this topic Rotavirus Vaccines Aged Out No longer eligible based on patient's age to complete this topic Procedures Procedure Name Priority Date/Time Associated Diagnosis Comments BI MAMMOGRAM SCREENING TOMOSYNTHESIS BILATERAL Routine 12/06/2024 9:05 AM EST LIPID PANEL, STANDARD Routine 05/07/2024 9:05 AM EDT Atherosclerosis of coronary artery of [place] heart without angina pectoris, unspecified vessel or lesion type Bilateral carotid artery stenosis from Last 3 Months or Most Recently Relevant to Health Maintenance Results * BI Mammogram Screening Tomosynthesis Bilateral (12/06/2024 9:05 AM EST) Anatomical Region Laterality Modality Breast Bilateral Mammography 12/06/2024 9:05 AM EST Narrative 12/15/2024 1:13 PM EST ? [facility] ? [address] ?[place] [address] ? Mammography Report ? Signed ? Patient: Swanson,Sita ?MR#: [id number] ? : 1955 ?Acct:[id number] ? Age/Sex: 69 / F ?ADM Date: 12/06/24 ? Loc: HO.MAMMO ? Attending Dr: Helga Joy MD ? Ordering Physician: Helga Parker MD ?Results: ?? 1Negative ? Date of Service: 12/06/24 ?Follow Up: 1 Year From Orig ?? inal Mammogram ? Procedure(s): MM tomosynthesis screening BI ?? Accession Number(s): [id number] ? cc: Helga Parker MD ? EXAMINATION: ?? MM SCREENING DIGITAL BREAST TOMOSYNTHESIS, BILATERAL ? CLINICAL INFORMATION: ? Screening. Asymptomatic. ? COMPARISON: ?? Mammography: Comparison is made with available priors ? TECHNIQUE: ?? Digital breast mammography with tomosynthesis is performed in both the ?? craniocaudal and mediolateral oblique views along with computer-aided ?? detection (CAD). ? FINDINGS: ?? There are scattered areas of fibroglandular density (ACR BI-RADS breast ?? composition Category b). ? There are no significant masses, abnormal calcifications, or other ?? abnormalities. ? MM/MM tomosynthesis screening BI ?? IMPRESSION: ?? No mammographic evidence of malignancy. ? ASSESSMENT: ? BI-RADS BI-RADS 1 - Negative ? RECOMMENDATION: ?? Routine annual mammography screening. ? 1 year F/U ? This examination should not preclude the clinical evaluation of a ?? suspicious palpable abnormality. ? This patient's information was entered into a reminder system with a ?? target due date for their next mammogram. ? Electronically signed by: ??Ese Carrera DO ??12/15/2024 01:10 PM EST ? Dictated By: ?Ese Carrera DO ? Signed By: ?<Electronically signed by Ese Carrera, DO in OV> ? 12/15/24 1310 ? DD/ 0905 ? TD/TT: 12/06/2415 ? Production Helper: ? Procedure Note Sreekanth, Image - 12/15/2024 [place] [facility] [address] [place] [address] Mammography Report Signed Patient: Prashant Swanson#: [id number] : 7Acct:[id number] Age/Sex: 69 / FADM Date: 12/06/24 Loc: HO.MAMMO Attending Dr: Helga Joy MD Ordering Physician: Helga Parker MDResults: 1Negative Date of Service: 12/06/24Follow Up: 1 Year From Orig inal Mammogram Procedure(s): MM tomosynthesis screening BI Accession Number(s): [id number] cc: Helga Parker MD EXAMINATION: MM SCREENING DIGITAL BREAST TOMOSYNTHESIS, BILATERAL CLINICAL INFORMATION: Screening. Asymptomatic. COMPARISON: Mammography: Comparison is made with available priors TECHNIQUE: Digital breast mammography with tomosynthesis is performed in both the craniocaudal and mediolateral oblique views along with computer-aided detection (CAD). FINDINGS: There are scattered areas of fibroglandular density (ACR BI-RADS breast composition Category b). There are no significant masses, abnormal calcifications, or other abnormalities. MM/MM tomosynthesis screening BI IMPRESSION: No mammographic evidence of malignancy. ASSESSMENT: BI-RADS BI-RADS 1 - Negative RECOMMENDATION: Routine annual mammography screening. 1 year F/U This examination should not preclude the clinical evaluation of a suspicious palpable abnormality. This patient's information was entered into a reminder system with a target due date for their next mammogram. Electronically signed by: Ese Carrera DO 12/15/2024 01:10 PM EST Dictated By: Ese aCrrera DO Signed By: <Electronically signed by Ese Carrera DO in OV> 12/15/24 1310 DD/ 4 TD/TT: 12/06/24914 Production Helper: Helga Joy MD IMG BI PROCEDURES Fin al Result * (ABNORMAL) Lipid Panel, Standard (05/07/2024 9:05 AM EDT) Triglycerides 99 <150 mg/dL [facility] Comment:Desirable Triglyceri de: less than 150 mg/dLBorderline High Triglyceride 150-199 mg/dLHigh Triglyceride: 200-499 mg/dLVery High Triglyceride: greater than or equal to 5OO mg/dL Cholesterol 188 <200 mg/dL [facility] Comment:Desirable Cholestero l: less than 200 mg/dLBorderline High Cholesterol: 200-239 mg/dLHigh Cholesterol: greater than 239 mg/dL LDL Cholesterol Calculated 124(H) <100 mg/dL [facility] Comment:Desirable LDL: less than 100 mg/dLNear Optimal/Above Optimal LDL: 110- 129 mg/dLBorderline High LDL: 130-159 mg/dLHigh LDL: 160-189 mg/dLVery High LDL: greater than or equal to 190 mg/dL HDL Cholesterol 45 >40 mg/dL [facility] Comment:Desirable HDL: great er than 40 mg/dL Note: This HDL assay may give artificially low results in patients with liver disease. Blood Venous blood specimen / Unknown 05/07/2024 9:05 AM EDT 05/07/2024 11:15 AM EDT Helga Joy MD LAB BLOOD ORDERABLES Final Result [facility] [address] [place] [address] [phone] from Last 3 Months or Most Recently Relevant to Health Maintenance Insurance [place] [address] [place] [place] [id number] Care Teams Antique Furniture Reproducer Relationship Specialty Start Date End Date Helga Parker MD [address] [place] [address] PCP - General Family Medicine 08/07/18
--- OUTSIDE RECORDS SUMMARY | 2025-01-29 15:53 | XMS_ITS | Encounter Summary ---
Author Organization [employer] Address [address] [facility] [address] [place] [address] Care Team Providers Care General Warehouse Associate Name Role Phone Helga Parker MD Primary Care Provide r Reason for Visit * Reason Comments Med Refill Encounter Details Date Type Department Care Team ([facility] st Contact Info) Description 01/25/2025 Refill [facility] [address] [place], [place] [phone] Helga Parker MD [address] [place] [address] Bilateral carotid artery stenosis Social History Tobacco Use Types Packs/Day Years [...] AM EDT documented as of this encounter Plan of Treatment Upcoming Encounters Date Type Department Care Team (Late st Contact Info) Description 02/04/2025 10:30 AM EDT Office Visit [facility] [address] [place] [address] Helga Parker MD [address] [place] [address] documented as of this encounter Visit Diagnoses Diagnosis Bilateral carotid artery stenosis Occlusion and stenosis of carotid artery without mention of cerebral infarction documented in this encounter Additional Health Concerns Assessment Noted Time PHQ-9 Depression Total Score: 0 05/07/20 24 10:15 AM EDT documented as of this encounter Care Teams General Warehouse Associate Relationship Specialty Start Date End Date Helga Parker MD [address] [place] [address] PCP - General Family Medicine 08/07/18 documented as of this encounter
--- OUTSIDE RECORDS SUMMARY | 2025-01-29 15:53 | XMS_ITS | Encounter Summary ---
Author Organization [employer] Address 75 [facility] 7t [place] [address] Care Team Providers Care Nozzle And Sleeve Worker Name Role Phone Helga Parker MD Primary Care Provide r Reason for Visit * Reason Comments Med Change Request Encounter Details Date Type Department Care Team ([facility] Contact Info) Description 11/22/2024 Refill [facility] [address] [place], [place] [phone] Helga Parker MD [address] [place] [address] Overactive bladder Social History Tobacco Use Types Packs/Day Years [...] Description 02/04/2025 10:30 AM EDT Office Visit [facility] [address] [place] [phone] Helga Parker MD [address] [place] [address] documented as of this encounter Visit Diagnoses Diagnosis Overactive bladder Hypertonicity of bladder documented in this encounter Additional Health Concerns Assessment Noted Time PHQ-9 Depression Total Score: 0 05/07/20 24 10:15 AM EDT documented as of this encounter Care Teams Nozzle And Sleeve Worker Relationship Specialty Start Date End Date Helga Parker MD [address] [place] [phone] PCP - General Family Medicine 08/07/18 documented as of this encounter
--- OUTSIDE RECORDS SUMMARY | 2025-01-29 15:53 | XMS_ITS | Encounter Summary ---
Author Organization [employer] Address 75 [facility] 7t [place] [address] Care Team Providers Care Data Communications Analyst Name Role Phone Helga Parker MD Primary Care Provide r Reason for Visit * Reason Comments Med Change Request Encounter Details Date Type Department Care Team ([facility] Contact Info) Description 04/04/[address] [facility] MED[facility]INE [address] [place], [place] [phone] Helga Parker MD 230 [place] [address] Anxiety Social History Tobacco Use Types Packs/Day Years Used Date Smoking Tobacco: Every Day Cigarettes Passive Smoke Exposure: Current Smokeless Tobacco: Never Depression Answer Date Recorded Patient Health Questionnaire-9 Score 0 11/22/2023 Patient Health Questionnaire-9 Score 0 11/22/2023 Last PHQ-9: Questionnaire Data Not on file 1 01/23/2023 Housing Stability Answer Date Recorded What is [...] Date Recorded Patient Health Questionnaire-2 Score 0 11/22/2023 Comments Unknown Sex and Gender Information Value [...] 10:30 AM EDT Office Visit [facility] [address] [place] [phone] Helga Parker MD [address] [place] [phone] documented as of this encounter Visit Diagnoses Diagnosis Anxiety Anxiety state, unspecified documented in this encounter Additional Health Concerns Assessment Noted Time PHQ-9 Depression Total Score: 0 11/22/20 23 9:13 AM EST documented as of this encounter Care Teams Data Communications Analyst Relationship Specialty Start Date End Date Helga Parker MD [address] [place] [phone] PCP - General Family Medicine 08/07/18 documented as of this encounter
--- OUTSIDE RECORDS SUMMARY | 2025-01-29 15:53 | XMS_ITS | Encounter Summary ---
Author Organization [employer] Address 75 [facility] 7t [place] [address] Care Team Providers Care Environmental Laboratory Technician Name Role Phone Helga Parker MD Primary Care Provide r Reason for Visit * Reason Comments Med Refill Encounter Details Date Type Department Care Team ([facility] st Contact Info) Description 10/22/2023 Refill [facility] 230 [place] [address] Helga Parker MD 230 [place] [address] Social History Tobacco Use Types Packs/Day Years Used Date Smoking Tobacco: Every Day Cigarettes Passive Smoke Exposure: Current Smokeless Tobacco: Never Depression Answer Date Recorded Patient Health Questionnaire-9 Score 14 05/23/2023 Housing Stability Answer Date Recorded What is [...] Answer Date Recorded Patient Health Questionnaire-2 Score 6 05/23/2023 Comments Unknown Sex and Gender Information Value [...] Description 02/04/2025 10:30 AM EDT Office Visit [facility] [address] [place] [address] Helga Parker MD [address] [place] [phone] documented as of this encounter Visit Diagnoses Not on filedocumented in this encounter Additional Health Concerns Assessment Noted Time PHQ-9 Depression Total Score: 14 023 11:24 AM EDT documented as of this encounter Care Teams Environmental Laboratory Technician Relationship Specialty Start Date End Date Helga Parker MD [address] [place] [phone] PCP - General Family Medicine 08/07/18 documented as of this encounter
--- OUTSIDE RECORDS SUMMARY | 2025-01-29 15:53 | XMS_ITS | Encounter Summary ---
Author Organization [employer] Address 75 [facility] 7t [place] [address] Care Team Providers Care Dial Refinisher Name Role Phone Helga Parker MD Primary Care Provide r Reason for Visit * Reason Comments Med Change Request Encounter Details Date Type Department Care Team ([facility] Contact Info) Description 12/29/2024 Refill [facility] 230 [place], [place] [phone] [facility] 230 [place] [address] Christal Social History Tobacco Use Types Packs/Day Years [...] Description 02/04/2025 10:30 AM EDT Office Visit [facility] [address] [place] [phone] Helga Parker MD 230 [place] [address] documented as of this encounter Visit Diagnoses Diagnosis Melasma Other dyschromia documented in this encounter Additional Health Concerns Assessment Noted Time PHQ-9 Depression Total Score: 0 05/07/20 24 10:15 AM EDT documented as of this encounter Care Teams Dial Refinisher Relationship Specialty Start Date End Date Helga Parker MD [address] [place] [phone] PCP - General Family Medicine 08/07/18 documented as of this encounter
--- OUTSIDE RECORDS SUMMARY | 2025-01-29 15:54 | XMS_ITS | Encounter Summary ---
Author Organization [employer] [facility] Address [address] [facility] 7t [place] [address] Care Team Providers Care Manager Erp Name Role Phone Helga Parker MD Primary Care Provide r Reason for Visit * Reason Comments Med Refill Encounter Details Date Type Department Care Team (Late Contact Info) Description 08/26/2023 Refill [facility] MED[facility]INE [address] [place] [address] [phone] Helga Parker MD [address] [place] [address] [phone] Primary osteoarthritis of right knee Social History Tobacco Use Types Packs/Day Years Used Date Smoking Tobacco: Every Day Cigarettes Passive Smoke Exposure: Current Smokeless Tobacco: Never Depression Answer Date Recorded Patient Health Questionnaire-9 Score 14 05/23/2023 Depression Answer Date Recorded Patient Health Questionnaire-2 [...] Encounters Date Type Department Care Team (Late Contact Info) Description 02/04/2025 10:30 AM EDT Office Visit [facility] [address] [place] [phone] Helga Parker MD [address] [place] [address] [phone] documented as of this encounter Visit Diagnoses Diagnosis Primary osteoarthritis of right knee documented in this encounter Additional Health Concerns Assessment Noted Time PHQ-9 Depression Total Score: 14 023 11:24 AM EDT documented as of this encounter Care Teams Manager Erp Relationship Specialty Start Date End Date Helga Parker MD 230 [place] [address] PCP - General Family Medicine 08/07/18 documented as of this encounter
--- OUTSIDE RECORDS SUMMARY | 2025-01-29 15:54 | XMS_ITS | Encounter Summary ---
Author Organization [employer] Address 75 [facility] 7t [place] [address] Care Team Providers Care Bus Attendant Name Role Phone Helga Parker MD Primary Care Provide r Reason for Visit * Reason Comments Med Change Request Encounter Details Date Type Department Care Team ([facility] Contact Info) Description 12/29/2024 Refill [facility] 230 [place], [place] [phone] [facility] 230 [place] [address] Overactive bladder Social History Tobacco Use Types [...] Description 02/04/2025 10:30 AM EDT Office Visit [facility] MED[facility] [address] [place] [phone] Helga Parker MD [address] [place] [phone] documented as of this encounter Visit Diagnoses Diagnosis Overactive bladder Hypertonicity of bladder documented in this encounter Additional Health Concerns Assessment Noted Time PHQ-9 Depression Total Score: 0 05/07/20 24 10:15 AM EDT documented as of this encounter Care Teams Bus Attendant Relationship Specialty Start Date End Date Helga Parker MD [address] [place] [phone] PCP - General Family Medicine 08/07/18 documented as of this encounter
--- OUTSIDE RECORDS SUMMARY | 2025-01-29 15:54 | XMS_ITS | Encounter Summary ---
Author Organization [employer] [facility] Address 75 [facility] 7t [place] [address] Care Team Providers Care Animal Humane Agent Supervisor Name Role Phone Helga Parker MD Primary Care Provide r Reason for Visit * Reason Comments Med Change Request Encounter Details Date Type Department Care Team ([facility] Contact Info) Description 05/23/2023 Refill [facility] MED[facility]INE [address] [place] [phone] Helga Parker MD [address] [place] [phone] Gastroesophageal reflux disease without esophagitis Social History Tobacco Use Types Packs/Day Years [...] Orientation Straight 09/25/2022 10 :16 AM EDT COVID-19 Exposure Response Date Recorded In the last 10 days, have yo u been in contact with someone who was confirmed or suspected to have Coronavirus/COVID-19? No / Unsure 05/23/2023 10:57 AM EDT documented as of this encounter Plan of Treatment Upcoming Encounters Date Type Department Care Team ([facility] Contact Info) Description 02/04/2025 10:30 AM EDT Office Visit [facility] 230 [place] [address] Helga Parker MD [address] [place] [address] documented as of this encounter Visit Diagnoses Diagnosis Gastroesophageal reflux disease without esophagitis Esophageal reflux documented in this encounter Additional Health Concerns Assessment Noted Time PHQ-9 Depression Total Score: 14 023 11:24 AM EDT documented as of this encounter Care Teams Animal Humane Agent Supervisor Relationship Specialty Start Date End Date Helga Parker MD [address] [place] [phone] PCP - General Family Medicine 08/07/18 documented as of this encounter
--- OUTSIDE RECORDS SUMMARY | 2025-01-29 15:54 | XMS_ITS | Encounter Summary ---
Author Organization [employer] [facility] Address 75 [facility] 7t [place] [address] Care Team Providers Care Warp Tier Name Role Phone Helga Parker MD Primary Care Provide r Reason for Visit * Reason Comments Med Refill Encounter Details Date Type Department Care Team (Late Contact Info) Description 06/22/[address] [facility] MEDICINE [address] [place] [phone] Helga Parker MD 230 [place] [address] Smoking Social History Tobacco Use Types Packs/Day Years [...] Description 02/04/2025 10:30 AM EDT Office Visit [facility]INE 230 [place] [address] Helga Parker MD [address] [place] [address] documented as of this encounter Visit Diagnoses Diagnosis Smoking Tobacco use disorder documented in this encounter Additional Health Concerns Assessment Noted Time PHQ-9 Depression Total Score: 14 023 11:24 AM EDT documented as of this encounter Care Teams Warp Tier Relationship Specialty Start Date End Date Helga Parker MD [address] [place] [address] PCP - General Family Medicine 08/07/18 documented as of this encounter
== END 2025-01-29 13:43 | disposition home or self-care (01) ==
PROVIDERS: PCP Internal Medicine; Visit Provider Internal Medicine Cardiovascular Disease
DX: I25.10 Atherosclerotic heart disease of native coronary artery without angina pectoris (principal)
CPT/HCPCS: 93010; 99214

== ENCOUNTER → 2025-01-29 13:07 | Outpatient (BNVA) | payer MEDICAID, SELFPAY | PROVIDERS: PCP Internal Medicine; Visit Provider Internal Medicine Cardiovascular Disease | DX: I25.10 Atherosclerotic heart disease of native coronary artery without angina pectoris (principal) | CPT/HCPCS: 93005; 99212 ==

== ENCOUNTER 2025-06-25 11:09 | Outpatient (AMB) | payer MEDICAID, SELFPAY ==
--- NOTE | 2025-06-25 11:17 | A.OFFVIS_ITS ---
Intake Visit Reasons: Migraine, Insomnia Allergies varenicline Allergy (Unknown, Verified 03/10/21 10:44) rash HPI Comments Details: 70 y/o woman with right frontal encephalomalacia with a possible underlying AVM, anxiety disorder, insomnia, and migraine. She was getting headaches twice a week and they were terrible. [facility] Medical History (Updated 06/25/25 @ 11:28 by Waqar Whaley MD) Arthritis Insomnia Anxiety disorder Cerebral AVM Cerebral microvascular disease Migraine equivalent Migraine CAD (coronary artery disease) CVA (cerebral vascular accident) Bilateral carotid artery disease Hyperlipidemia Surgical History Hx of arthroscopic knee surgery Family History Father CVD (cardiovascular disease) Mother Esophagus cancer Review of Systems Const Details: Constitutional:?No fever, chills, fatigue, weight loss, or night sweats. HEENT:?No headache, vision changes, hearing loss, nasal congestion, sore throat. Neurological:?No dizziness, syncope, seizures, numbness, tingling, weakness, tremors, memory loss. Psychiatric:?No anxiety, depression, mood swings, sleep disturbance, or hallucinations. Endocrine:?No heat/cold intolerance, polydipsia, polyuria, or hair/skin changes. Hematologic/Lymphatic:?No easy bruising, bleeding, or lymphadenopathy. Integumentary (Skin):?No rash, lesions, itching, or color changes. ? Physical Exam Neuro Other: Mental Status: Alert and oriented to person, place, and time. Normal attention. Normal spontaneous speech, fluency, and comprehension. No obvious issues with mood and memory. Affect is appropriate. Cranial Nerves: CN II: Visual martinez full to confrontation, visual acuity intact. CN III, IV, : Pupils equal, round, reactive to light and accommodation. Extraocular movements are normal. CN V: Facial sensation is normal. CN VII: Facial movements symmetrical. CN VIII: Hearing intact to bedside conversation is normal. CN IX, X: Palate elevates symmetrically. CN XI: Shoulder shrug and head turn symmetrical. CN XII: Tongue midline without atrophy or fasciculations. Extrapyramidal: Full facial expressions and blinking. No rigidity. Movements are appropriate with no tremor or abnormality. Speech: Normal; no dysarthria or tremor. Assessment & Plan Assessment & Plan (1) Cerebral AVM: Comment: [place] [facility] [place]: Mild bifrontal atrophy and right frontal encephalomalacia, ?AVM MRI brain at [facility] [place] in 2010: Same as above and mild MVD NICS at [facility] in 2013: [place] MRI brain at [facility] in Jan 2016: Right frontal encephalomalacia with possible underlying AVM and mild MVD. Code(s): Q28.2 - Arteriovenous malformation of cerebral vessels Category: Medical (2) Migraine: Code(s): G43.909 - Migraine, unspecified, not intractable, without status migrainosus Category: Medical Qualifiers: Migraine type: migraine (< 15 days per month) without aura Status migrainosus presence: without status migrainosus Intractability: not intractable Qualified Code(s): G43.009 - Migraine without aura, not intractable, without status migrainosus Plan Impression: a: Migraine w/o aura b: Right frontal encephalomalacia with AVM, asymptomatic Rec: a: Topiramate 50mg a day b: Sumatriptan 50mg a day as needed c: MRI brain w/o Orders: Orders MR head/brain wo con Today Q28.2 - Arteriovenous malformation of cerebral vessels Medications: New sumatriptan succinate 50 mg orally a say as needed PRN; 10 tabs 2RF headache Changed From topiramate (Topamax) 50 mg PO BID To topiramate (Topamax) 50 mg PO ONCE 90 tabs 0RF Coding Level of Care Code Tele Est Pt Level 4 (74605) Diagnoses Cerebral AVM Q28.2 Migraine without aura and without status migrainosus, not intractable G43.009 Migraine type: migraine (< 15 days per month) without aura Status migrainosus presence: without status migrainosus Intractability: not intractable
--- OUTSIDE RECORDS SUMMARY | 2025-06-25 12:03 | XMS_ITS | Encounter Summary ---
Author Organization [employer] Address 75 [facility] 7 [place] [address] Care Team Providers Care Cardiopulmonary Technologist Name Role Phone Helga Parker MD Primary Care Provide r Reason for Visit * Reason Comments Med Refill Encounter Details Date Type Department Care Team ([facility] Contact Info) Description 10/22/2023 Refill [facility] 230 [place] [address] Helga Parker MD 230 [place] [address] Social History Tobacco Use Types Packs/Day Years [...] as of this encounter Plan of Treatment Not on file documented as of this encounter Visit Diagnoses Not on filedocumented in this encounter Additional Health Concerns Assessment Noted Time PHQ-9 Depression Total Score: 14 023 11:24 AM EDT documented as of this encounter Care Teams Cardiopulmonary Technologist Relationship Specialty Start Date End Date Helga Parker MD [address] [place] [address] PCP - General Family Medicine 08/07/18 documented as of this encounter
== END 2025-06-25 11:35 | disposition home or self-care (01) ==
LOC: HO.HSM 11:10
PROVIDERS: PCP Internal Medicine; Visit Provider Psychiatry & Neurology Neurology
DX: Q28.2 Arteriovenous malformation of cerebral vessels (principal); G43.009 Migraine without aura, not intractable, without status migrainosus
CPT/HCPCS: 99214

== ENCOUNTER → 2025-06-25 11:09 | Outpatient (BNVA) | payer MEDICAID, SELFPAY | PROVIDERS: PCP Internal Medicine; Visit Provider Psychiatry & Neurology Neurology | DX: Q28.2 Arteriovenous malformation of cerebral vessels (principal); G43.009 Migraine without aura, not intractable, without status migrainosus | CPT/HCPCS: 99212 ==

== ENCOUNTER 2025-07-11 10:47 | Outpatient (REF) | payer MEDICAID, SELFPAY ==
--- NOTE | ~2025-07-11 | MR_ITS ---
EXAMINATION: MR BRAIN WITHOUT CONTRAST CLINICAL INFORMATION: Arteriovenous malformation, prior stroke. COMPARISON: None available. TECHNIQUE: MRI of the brain was obtained using routine sequences without contrast. FINDINGS: There is a 23 mm serpiginous susceptibility signal abnormality centered in the right midline of the extra-axial/intra-axial cortical subcortical deep white matter right superior frontal gyrus without fluid restriction. There is a perilesional hyperintense T2 signal and volume loss extending into the superior margin of the deep periventricular white matter right frontal/cingulate gyri. No acute intracranial hemorrhage, mass effect, midline shift, hydrocephalus or herniation. Montez-white matter differentiation is normal. No restricted diffusion. Posterior cranial fossa contents demonstrated no signal abnormality or mass effect. Sellar/suprasellar region demonstrated no signal abnormality or gross masses. Normal position of the cerebellar tonsils. Bilateral, multifocal, punctate subcortical deep white matter hyperintense T2 FLAIR signal abnormality involving the supratentorial compartment. MR/MR head/brain wo con IMPRESSION: No acute stroke/nonhemorrhagic ischemia. No acute intracranial hemorrhage. Arteriovenous malformation centered in the right superior frontal /cingulate gyri with probable Spetzler-Denys gradin Electronically signed by: Edvin Barillas MD 07/13/2025 07:17 AM EDT
== END 2025-07-11 10:48 | disposition home or self-care (01) ==
LOC: HO.MRI 10:47
PROVIDERS: PCP Internal Medicine; Visit Provider Psychiatry & Neurology Neurology
DX: Q28.2 Arteriovenous malformation of cerebral vessels (principal)
CPT/HCPCS: 70551

== ENCOUNTER → 2025-07-11 11:00 | Outpatient (BNV) | payer MEDICAID, SELFPAY | PROVIDERS: PCP Internal Medicine; Visit Provider Radiology Diagnostic Radiology | DX: Q28.2 Arteriovenous malformation of cerebral vessels (principal) | CPT/HCPCS: 70551 ==

== ENCOUNTER 2025-09-03 10:25 | Outpatient (AMB) | payer MEDICARE, MEDICAID, SELFPAY ==
--- NOTE | 2025-09-03 10:28 | A.OFFVIS_ITS ---
Intake Visit Reasons: AFTER MRI Allergies varenicline Allergy (Unknown, Verified 03/10/21 10:44) rash HPI Comments Details: 70 y/o woman with right frontal AVM with some encephalomalacia, anxiety disorder, insomnia, and migraine. lesion. She is presenting for follow-up on a right frontal lobe arteriovenous malformation (AVM) and a cerebral infarction diagnosed in 2009. The history reveals right-sided weakness potentially linked to the 2010 stroke event, although the clinical findings suggest the weakness might have developed earlier, possibly around . There is no history of significant head injury reported. A CT scan performed in 2009 demonstrated the AVM, which was already present before the patient's reported stroke symptoms, signifying a potentially longstanding condition. The patient frequently experiences headaches, noting a sensation resembling something moving in her head on occasion. However, there's no indication of acute exacerbating factors, such as bleeding, stemming from the AVM. Her treatment regimen includes Topamax and occasional sumatriptan for headache management. [facility] Medical History (Updated 09/03/25 @ 10:39 by Waqar Whaley MD) Arthritis Insomnia Anxiety disorder Cerebral AVM Cerebral microvascular disease Migraine equivalent Migraine CAD (coronary artery disease) CVA (cerebral vascular accident) Bilateral carotid artery disease Hyperlipidemia Surgical History Hx of arthroscopic knee surgery Family History Father CVD (cardiovascular disease) Mother Esophagus cancer Review of Systems Const Details: Neurological: Reports right-sided weakness; frequent headaches. Denies any rece nt seizures or acute neurological deficits. - General: Denies any significant head injury history. Physical Exam Neuro Other: Mental Status: Alert and oriented to person, place, and time. Normal attention. Normal spontaneous speech, fluency, and comprehension. No obvious issues with mood and memory. Affect is appropriate. Cranial Nerves: CN II: Visual martinez full to confrontation, visual acuity intact. CN III, IV, : Pupils equal, round, reactive to light and accommodation. Extraocular movements are normal. CN V: Facial sensation is normal. CN VII: Facial movements symmetrical. CN VIII: Hearing intact to bedside conversation is normal. CN IX, X: Palate elevates symmetrically. CN XI: Shoulder shrug and head turn symmetrical. CN XII: Tongue midline without atrophy or fasciculations. Extrapyramidal: Full facial expressions and blinking. No rigidity. Movements are appropriate with no tremor or abnormality. Speech: Normal; no dysarthria or tremor. Assessment & Plan Assessment & Plan (1) Migraine: Code(s): G43.909 - Migraine, unspecified, not intractable, without status migrainosus Category: Medical Qualifiers: Migraine type: migraine (< 15 days per month) without aura Status migrainosus presence: without status migrainosus Intractability: not intractable Qualified Code(s): G43.009 - Migraine without aura, not intractable, without status migrainosus (2) Cerebral microvascular disease: Code(s): I67.89 - Other cerebrovascular disease Category: Medical (3) Cerebral AVM: Comment: MRI brain WO at [facility] [place] in 2024: R frontal AVM/encephalomalacia, mild MVD CT WO at [facility] [place] in 2009: Mild bifrontal atrophy and right frontal encephalomalacia, ?AVM MRI brain at [facility] in 2010: Same as above and mild MVD NICS at [facility] in 2012: [place] MRI brain at [facility] in Jan 2016: Right frontal encephalomalacia with possible underlying AVM and mild MVD. Code(s): Q28.2 - Arteriovenous malformation of cerebral vessels Category: Medical (4) Insomnia: Code(s): G47.00 - Insomnia, unspecified Category: Medical Qualifiers: Insomnia type: psychophysiologic Qualified Code(s): F51.04 - Psychophys iologic insomnia Plan Impression: a: R frontal AVM with some encephalomalacia, asymptomatic b: Migraine w/o aura c: Insomnia Rec: Topiramate 50mg one at night Mirtazapine 15mg one at night PRN Sumatriptan 50mg one at night Medications: New mirtazapine 15 mg PO BEDTIME 90 tabs 1RF Refilled topiramate (Topamax) 50 mg PO ONCE 90 tabs 1RF sumatriptan succinate 50 mg orally a say as needed PRN; 10 tabs 2RF headache Coding Level of Care Code Est Pt Level 4 (04675) Diagnoses Migraine without aura and without status migrainosus, not intractable G43.009 Migraine type: migraine (< 15 days per month) without aura Status migrainosus presence: without status migrainosus Intractability: not intractable Cerebral microvascular disease I67.89 Cerebral AVM Q28.2 Psychophysiological insomnia F51.04 Insomnia type: psychophysiologic
== END 2025-09-03 10:41 | disposition home or self-care (01) ==
LOC: HO.HSM 10:25
PROVIDERS: PCP Internal Medicine; Visit Provider Psychiatry & Neurology Neurology
DX: G43.009 Migraine without aura, not intractable, without status migrainosus (principal); I67.89 Other cerebrovascular disease; Q28.2 Arteriovenous malformation of cerebral vessels; F51.04 Psychophysiologic insomnia
CPT/HCPCS: 99214

== ENCOUNTER → 2025-09-03 10:25 | Outpatient (BNVA) | payer MEDICARE, MEDICAID, SELFPAY | PROVIDERS: PCP Internal Medicine; Visit Provider Psychiatry & Neurology Neurology | DX: G43.009 Migraine without aura, not intractable, without status migrainosus (principal); I67.89 Other cerebrovascular disease; Q28.2 Arteriovenous malformation of cerebral vessels; F51.04 Psychophysiologic insomnia | CPT/HCPCS: 99212 ==